=== PATIENT | female | born 1945 | race African-American/Black ===

== ENCOUNTER 2018-06-27 07:52 | Day surgery (SDC) | payer OTHER ==
[2018-06-27] MEDS ORDERED: TRYPAN BLUE 0.5 ML SYG IO (09:12)
[2018-06-27] MEDS ORDERED: LACTATED RINGER'S 1,000 ML IV (09:30)
[2018-06-27] MEDS: TROPICAMIDE 1% 15 ML OPH OPER (09:34)
[2018-06-27] MEDS: TETRACAINE 0.5% 4 ML OPH OPER (09:35)
[2018-06-27] MEDS: CYCLOPENTOLATE 2% 2 ML OPH OPER (09:35)
[2018-06-27] MEDS: MOXIFLOXACIN 0.5% 3 ML OPH OPER (09:35)
[2018-06-27] MEDS: PHENYLephrine 10% 5 ML OPH OPER (09:35)
[2018-06-27] MEDS: BROMFENAC SODIUM 1.7 ML OPH DROP OPER (09:36)
[2018-06-27] MEDS ORDERED: FENTAnyl 50 MCG/ML VIAL (09:54)
[2018-06-27] MEDS ORDERED: ONDANSETRON 4 MG INJ (09:54)
[2018-06-27] MEDS ORDERED: MIDAZOLAM 1 MG/ML 2 ML INJ ×2 (09:54→11:06)
[2018-06-27] MEDS: LIDOCAINE 3.5% GEL TUBE OPER (10:00)
[2018-06-27] MEDS ORDERED: LIDOCAINE 3.5% GEL TUBE (10:01)
[2018-06-27] MEDS ORDERED: CEFAZOLIN 1 GM INJ ×2 (10:15→10:16)
[2018-06-27] MEDS ORDERED: CHLOROPROCAINE 3% (MPF) 20 ML INJ (10:15)
[2018-06-27] MEDS: TETRACAINE 0.5% 4 ML OPH LEFT EYE (10:32)
[2018-06-27] MEDS: LIDOCAINE 1%/EPI 30 ML INJ INJ (10:33)
[2018-06-27] MEDS: NA HYALURONATE/CHONDROITIN 0.5 ML SYG OP (10:33)
[2018-06-27] MEDS: TOBRAMYCIN/DEXAMETH 3.5 GM OPH OINT OPER (10:34)
[2018-06-27] MEDS: CARBACHOL 0.01% 1.5 ML OPH INJ LEFT EYE (10:50)
[2018-06-27] MEDS ORDERED: FENTAnyl 50 MCG/ML VIAL IV ×3 (11:00)
[2018-06-27] MEDS ORDERED: LABETALOL HCL 20MG INJ IV (11:00)
[2018-06-27] MEDS ORDERED: ONDANSETRON 4 MG INJ IV (11:00)
[2018-06-27] MEDS ORDERED: OXYCODONE/ACETAMINOPHEN (5/325) TAB PO (11:00)
[2018-06-27] MEDS ORDERED: NA HYALURONATE/CHONDROITIN 0.5 ML SYG (11:17)
[2018-06-27] MEDS ORDERED: TETRACAINE 0.5% 4 ML OPH (11:17)
[2018-06-27] MEDS ORDERED: CARBACHOL 0.01% 1.5 ML OPH INJ (11:17)
[2018-06-27] MEDS ORDERED: hydrALAzine 20 MG INJ (11:24)
[2018-06-27] MEDS: hydrALAzine 20 MG INJ IV (11:43)
[2018-06-27] MEDS: OXYCODONE/ACETAMINOPHEN (5/325) TAB PO (13:00)
== END 2018-06-27 13:22 | disposition home or self-care (01) ==
LOC: SDS 07:52
DX: H25.89 Other age-related cataract (principal); E11.9 Type 2 diabetes mellitus without complications; I10 Essential (primary) hypertension; E78.5 Hyperlipidemia, unspecified; E66.01 Morbid (severe) obesity due to excess calories; Z68.36 Body mass index [BMI] 36.0-36.9, adult
CPT/HCPCS: 66984; 82962; 93005; J2400

== ENCOUNTER 2018-08-29 06:25 | Day surgery (SDC) | payer OTHER ==
[~2018-08-29 06:25] MED LIST: LACTATED RINGER'S 1,000 ML IV
[2018-08-29] MEDS ORDERED: CEFAZOLIN 1 GM INJ (07:00)
[2018-08-29] MEDS: BROMFENAC SODIUM 1.7 ML OPH DROP OPER (07:00)
[2018-08-29] MEDS: TETRACAINE 0.5% 4 ML OPH OPER (07:00)
[2018-08-29] MEDS: LIDOCAINE 3.5% GEL TUBE OPER (07:00)
[2018-08-29] MEDS: MOXIFLOXACIN 0.5% 3 ML OPH OPER (07:01)
[2018-08-29 07:09] LABS: ADD MAN DIFF? NO
[2018-08-29 07:16] LABS: BASOPHILS % 0.4 % (0.0-2.0); EOSINOPHILS # 0.2 10^3/ul (0.0-0.5); EOSINOPHILS % 2.6 % (0.0-7.0); HEMOGLOBIN 11.1 g/dl (12.0-16.0); LYMPHOCYTES # 2.5 10^3/ul (0.8-2.9); LYMPHOCYTES % 36.2 % (15.0-51.0); MEAN CORPUSCULAR HEMOGLOBIN 22.4 pg (29.0-33.0); MEAN CORPUSCULAR HGB CONC 31.7 g/dl (32.0-37.0); MEAN CORPUSCULAR VOLUME 70.6 fl (82.0-101.0); MEAN PLATELET VOLUME 10.1 fl (7.4-10.4); MONOCYTE # 0.4 10^3/ul (0.3-0.9); MONOCYTES % 5.9 % (0.0-11.0); NEUTROPHIL # 3.8 10^3/ul (1.6-7.5); NEUTROPHILS % 54.6 % (39.0-77.0); PLATELET COUNT 256 10^3/UL (140-415); RED BLOOD COUNT 4.96 10^6/ul (4.20-5.40); RED CELL DISTRIBUTION WIDTH 15.5 % (11.5-14.5)
[2018-08-29 07:37] LABS: ANION GAP 10 (5-13); BLOOD UREA NITROGEN 18 mg/dl (7-20); CALCIUM 9.4 mg/dl (8.4-10.2); CARBON DIOXIDE 27 mmol/L (21-31); CHLORIDE 108 mmol/L (97-110); CREATININE 0.73 mg/dl (0.44-1.00); GLUCOSE 145 mg/dl (70-220); POTASSIUM 3.8 mmol/L (3.5-5.1)
[2018-08-29 07:39] LABS: INR 1.02; PROTIME 13.5 Sec (11.9-14.9); PT RATIO 1.1
[2018-08-29 07:42] LABS: PARTIAL THROMBOPLASTIN TIME 21.3 Sec (23.0-35.0)
[2018-08-29] MEDS ORDERED: EPINEPHrine 1 MG INJ (07:49)
[2018-08-29] MEDS ORDERED: NA HYALURONATE/CHONDROITIN 0.5 ML SYG (07:49)
[2018-08-29] MEDS ORDERED: TOBRAMYCIN 0.3% 3.5 GM OPH OINT (07:49)
[2018-08-29] MEDS ORDERED: CARBACHOL 0.01% 1.5 ML OPH INJ (07:49)
[2018-08-29 07:55] LABS: SODIUM 145 mmol/L (135-144)
[2018-08-29] MEDS ORDERED: LIDOCAINE 2%/EPI MPF (SDV) 20 ML VIAL INJ (08:00)
[2018-08-29] MEDS ORDERED: MIDAZOLAM 1 MG/ML 2 ML INJ IV (08:00)
[2018-08-29] MEDS ORDERED: IPRATROPIUM (NEB) 0.5 MG/2.5 ML AMP HHN (08:00)
[2018-08-29] MEDS ORDERED: OXYCODONE/ACETAMINOPHEN (5/325) TAB PO ×2 (08:00)
[2018-08-29] MEDS ORDERED: MEPERIDINE 25 MG INJ IV (08:00)
[2018-08-29] MEDS ORDERED: ONDANSETRON 4 MG INJ IV (08:00)
[2018-08-29] MEDS: TETRACAINE 0.5% 4 ML OPH LEFT EYE (08:00)
[2018-08-29] MEDS ORDERED: hydrALAzine 20 MG INJ IV (08:00)
[2018-08-29] MEDS ORDERED: DIPHENHYDRAMINE 50 MG INJ IV (08:00)
[2018-08-29] MEDS: LIDOCAINE 2% (MDV) 20 ML INJ INJ (08:00)
[2018-08-29] MEDS ORDERED: HYDROmorphONE 1 MG/5 ML IV SYRINGE IV ×3 (08:00)
[2018-08-29] MEDS ORDERED: LABETALOL HCL 20MG INJ IV (08:00)
[2018-08-29] MEDS ORDERED: ALBUTEROL 0.083% (NEB) 2.5 MG/3 ML AMP HHN (08:00)
[2018-08-29] MEDS ORDERED: FENTAnyl 50 MCG/ML VIAL IV ×3 (08:00)
[2018-08-29] MEDS ORDERED: EPHEDrine SULFATE 50 MG/5 ML SYG IV (08:00)
[2018-08-29] MEDS ORDERED: TRIMETHOBENZAMIDE 100 MG/ML VIAL IM (08:00)
[2018-08-29] MEDS ORDERED: FENTAnyl 50 MCG/ML VIAL (08:27)
[2018-08-29] MEDS ORDERED: CYCLOPENTOLATE 2% 2 ML OPH (08:29)
[2018-08-29] MEDS: CYCLOPENTOLATE 2% 2 ML OPH OPER (08:35)
[2018-08-29] MEDS: TOBRAMYCIN 0.3% 3.5 GM OPH OINT LEFT EYE (08:50)
[2018-08-29] MEDS: NA HYALURONATE/CHONDROITIN 0.5 ML SYG LEFT EYE (08:50)
[2018-08-29] MEDS: CARBACHOL 0.01% 1.5 ML OPH INJ LEFT EYE (08:56)
== END 2018-08-29 10:15 | disposition home or self-care (01) ==
LOC: SDS 06:25
DX: T85.22XD Displacement of intraocular lens, subsequent encounter (principal); Y83.8 Other surgical procedures as the cause of abnormal reaction of the patient, or of later complication, without mention of misadventure at the time of the procedure; E11.9 Type 2 diabetes mellitus without complications; I10 Essential (primary) hypertension
CPT/HCPCS: 66825; 80048; 82962; 85025; 85610; 85730

== ENCOUNTER 2019-01-02 06:06 | Day surgery (SDC) | payer OTHER ==
[~2019-01-02 06:06] MED LIST changes: -LACTATED RINGER'S 1,000 ML IV; +LIDOCAINE 3.5% GEL TUBE OPER
[2019-01-02] MEDS: BROMFENAC SODIUM 1.7 ML OPH DROP OPER (07:27)
[2019-01-02] MEDS: MOXIFLOXACIN 0.5% 3 ML OPH OPER (07:27)
[2019-01-02] MEDS: TETRACAINE 0.5% 4 ML OPH OPER (07:28)
[2019-01-02] MEDS: SOD CHLORIDE 0.9% 1,000 ML IV (07:29)
[2019-01-02] MEDS ORDERED: OXYCODONE/ACETAMINOPHEN (5/325) TAB PO (08:00)
[2019-01-02] MEDS ORDERED: ACETAMINOPHEN 500 MG TAB PO (08:00)
[2019-01-02] MEDS ORDERED: ACETAMINOPHEN 325 MG TAB PO (08:00)
[2019-01-02] MEDS ORDERED: ALBUTEROL 0.083% (NEB) 2.5 MG/3 ML AMP HHN (08:00)
[2019-01-02] MEDS ORDERED: LABETALOL HCL 20MG INJ IV (08:00)
[2019-01-02] MEDS ORDERED: DIPHENHYDRAMINE 50 MG INJ IV (08:00)
[2019-01-02] MEDS ORDERED: TETRACAINE 0.5% 4 ML OPH (08:20)
[2019-01-02] MEDS ORDERED: hydrALAzine 20 MG INJ (08:20)
[2019-01-02] MEDS: LIDOCAINE 1% (MPF) 10 ML INJ (08:20)
[2019-01-02] MEDS ORDERED: METOPROLOL 5 MG INJ (08:20)
[2019-01-02] MEDS ORDERED: FENTAnyl 50 MCG/ML VIAL (08:22)
[2019-01-02] MEDS ORDERED: CEFAZOLIN 1 GM INJ ×2 (08:23)
[2019-01-02] MEDS ORDERED: MIDAZOLAM 1 MG/ML 2 ML INJ (08:42)
[2019-01-02] MEDS: CARBACHOL 0.01% 1.5 ML OPH INJ (08:45)
[2019-01-02] MEDS ORDERED: NA HYALURONATE/CHONDROITIN 0.5 ML SYG (08:45)
[2019-01-02] MEDS ORDERED: TOBRAMYCIN/DEXAMETH 2.5 ML OPH (08:52)
[2019-01-02] MEDS: FENTAnyl 50 MCG/ML VIAL IV (09:12)
[2019-01-02] MEDS: ONDANSETRON 4 MG INJ IV (09:12)
[2019-01-02] MEDS: hydrALAzine 20 MG INJ IV (09:27)
[2019-01-02] MEDS ORDERED: HYDROmorphONE 0.5 MG/0.5 ML SYG IV (09:30)
== END 2019-01-02 11:05 | disposition home or self-care (01) ==
LOC: SDS 06:06
DX: T85.22XD Displacement of intraocular lens, subsequent encounter (principal); Y83.8 Other surgical procedures as the cause of abnormal reaction of the patient, or of later complication, without mention of misadventure at the time of the procedure; I10 Essential (primary) hypertension; E11.9 Type 2 diabetes mellitus without complications
CPT/HCPCS: 66999; 82962; 93005